=== PATIENT | male | born 1965 | race American Indian/Alaskan Native ===

== ENCOUNTER 2017-02-09 11:26 | Emergency (ER) | payer SELFPAY ==
[2017-02-09 11:41] VITALS: BP 146/92
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
== END 2017-02-09 13:30 | disposition home or self-care (01) ==
LOC: ED 11:26
DX: H11.31 Conjunctival hemorrhage, right eye (principal); H10.31 Unspecified acute conjunctivitis, right eye; F17.200 Nicotine dependence, unspecified, uncomplicated; Z88.5 Allergy status to narcotic agent
CPT/HCPCS: 99282

== ENCOUNTER 2018-10-07 13:00 | Emergency (ER) | payer SELFPAY ==
--- NOTE | 2018-10-07 13:26 | Emergency Department Report ---
Chief Complaint: Nausea/Vomiting/Diarrhea Stated Complaint: FEELS NAUSEA Time Seen by Provider: 10/07/18 13:24 - HPI History of Present Illness: This is a 53 y.o. male that presents with nausea that started while at work. Denies pain. Current smoker - Exam Vital Signs: Vital Signs 10/07/18 13:04 Temperature 97.9 F Pulse Rate 96 H Respiratory 15 Rate Blood Pressure 125/89 [Right] O2 Sat by Pulse 98 Oximetry MSE screening note: Focused history and physical exam performed. Due to findings the following was ordered: ACC for further evaluation. ED Disposition for MSE Condition: Stable
[2018-10-07] MEDS ORDERED: ZOFRAN ODT PO ONE (15:19)
--- NOTE | 2018-10-07 15:24 | Emergency Department Report ---
- General Chief Complaint: Nausea/Vomiting/Diarrhea Stated Complaint: FEELS NAUSEA Time Seen by Provider: 10/07/18 13:24 Source: patient Mode of arrival: Ambulatory Limitations: No Limitations - History of Present Illness Initial Comments: Mr. Gonzáles is 53 yo male who presents with nausea, nasal congestion, cough. Mild symptoms. No fever. Mild malaise. No wheezing. +tobacco use +chest congestion especially when he talks MD Complaint: cough, rhinorrhea, nasal congestion -: Gradual, days(s) (3) Severity: mild Consistency: constant Improves With: nothing Worsens With: other (stress at work) - Related Data Previous Rx's Medication Instructions Recorded Last Taken Type Ibuprofen [Motrin] 600 mg PO Q8H PRN #30 tablet 02/15/16 Unknown Rx methOCARBAMOL [Robaxin TAB] 500 mg PO Q6H PRN #20 tablet 02/15/16 Unknown Rx traMADol [Ultram 50 MG tab] 50 mg PO Q6HR PRN #14 tablet 02/15/16 Unknown Rx Cetirizine HCl [ZyrTEC] 10 mg PO DAILY #30 capsule 02/09/17 Unknown Rx Erythromycin [Erythromycin Ophth 10 applic OP BID #1 tube 02/09/17 Unknown Rx Oint] Doxycycline Hyclate [Vibramycin] 100 mg PO BID 7 Days #14 capsule 10/07/18 Unknown Rx Allergies Allergy/AdvReac Type Severity Reaction Status Date / Time codeine AdvReac Hives Verified 02/15/16 11:10 ED Review of Systems ROS: Stated complaint: FEELS NAUSEA Other details as noted in HPI Constitutional: malaise ENT: congestion Respiratory: cough Gastrointestinal: nausea ED Past Medical Hx - Past Medical History Previous Medical History?: No - Surgical History Past Surgical History?: No - Social History Smoking Status: Current Every Day Smoker Substance Use Type: Alcohol - Medications Home Medications: Home Medications Medication Instructions Recorded Confirmed Last Taken Type Ibuprofen [Motrin] 600 mg PO Q8H PRN #30 tablet 02/15/16 Unknown Rx methOCARBAMOL [Robaxin TAB] 500 mg PO Q6H PRN #20 tablet 02/15/16 Unknown Rx traMADol [Ultram 50 MG tab] 50 mg PO Q6HR PRN #14 tablet 02/15/16 Unknown Rx Cetirizine HCl [ZyrTEC] 10 mg PO DAILY #30 capsule 02/09/17 Unknown Rx Erythromycin [Erythromycin Ophth 10 applic OP BID #1 tube 02/09/17 Unknown Rx Oint] Doxycycline Hyclate [Vibramycin] 100 mg PO BID 7 Days #14 capsule 10/07/18 Unknown Rx ED Physical Exam - General Limitations: No Limitations General appearance: alert, in no apparent distress - Head Head exam: Present: atraumatic, normocephalic - Eye Eye exam: Present: normal appearance - ENT ENT exam: Present: mucous membranes moist - Neck Neck exam: Present: normal inspection, full ROM - Respiratory Respiratory exam: Present: normal lung sounds bilaterally. Absent: respiratory distress, wheezes, rales, rhonchi, stridor - Cardiovascular Cardiovascular Exam: Present: regular rate, normal rhythm, normal heart sounds. Absent: systolic murmur, diastolic murmur, rubs, gallop - GI/Abdominal GI/Abdominal exam: Present: soft, normal bowel sounds. Absent: distended, tenderness, guarding, rebound - Rectal Rectal exam: Present: deferred - Extremities Exam Extremities exam: Present: normal inspection - Back Exam Back exam: Present: normal inspection - Neurological Exam Neurological exam: Present: alert, oriented X3 - Psychiatric Psychiatric exam: Present: normal affect, normal mood - Skin Skin exam: Present: warm, dry, intact, normal color. Absent: rash ED Course Vital Signs 10/07/18 13:04 Temperature 97.9 F Pulse Rate 96 H Respiratory 15 Rate Blood Pressure 125/89 [Right] O2 Sat by Pulse 98 Oximetry ED Medical Decision Making - Medical Decision Making URI with bronchitis, with hx of tobacco abuse, antibiotics are indicated Critical care attestation.: If time is entered above; I have spent that time in minutes in the direct care of this critically ill patient, excluding procedure time. ED Disposition Clinical Impression: Acute bronchitis, URI (upper respiratory infection) Disposition: DC-01 TO HOME OR SELFCARE Is pt being admited?: No Does the pt Need Aspirin: No Condition: Stable Instructions: Acute Bronchitis (ED), How to Stop Smoking (ED) Prescriptions: Doxycycline Hyclate [Vibramycin] 100 mg PO BID 7 Days #14 capsule Referrals: NABIL TRACY MD [Primary Care Provider] - 3-5 Days Forms: Work/School Release Form(ED)
[2018-10-07 15:35] VITALS: BP 124/85
== END 2018-10-07 15:33 | disposition home or self-care (01) ==
LOC: ED 13:00
DX: J06.9 Acute upper respiratory infection, unspecified (principal); J20.9 Acute bronchitis, unspecified; F17.200 Nicotine dependence, unspecified, uncomplicated; Z88.5 Allergy status to narcotic agent
CPT/HCPCS: 99282; Q0162